=== PATIENT | female | born 1985 | race Caucasian/White ===

== ENCOUNTER 2021-12-10 15:11 | Emergency (ER) | payer MEDICAID, SELFPAY ==
--- NOTE | ~2021-12-10 | US_ITS ---
EXAMINATION: US OB <=14 wk fetus w TV DATE: 12/10/2021 17:15 INDICATION: . TECHNIQUE: Real-time transabdominal and transvaginal pelvic ultrasound was performed. COMPARISON: None. FINDINGS: TRANSABDOMINAL ULTRASOUND: The uterus measures 12.1 x 6.4 x 6.5 cm. TRANSVAGINAL ULTRASOUND: There is a fluid collection in the endometrial complex with mean diameter of 1.8 cm. There are ill-defined echoes within the fluid collection. There are nabothian cysts in the c ervix. The right ovary measures 3.1 x 2.1 x 1.9 cm. The left ovary is not visualized. There is no stella e fluid in the pelvis. IMPRESSION: 1. Fluid collection in the endometrial complex with mean diameter of 1.8 cm containing ill-defined e choes. If this finding is a gestational sac, the estimated gestational age is 6 weeks and 5 days. Spo ntaneous and ectopic are not excluded. Serial beta hCGs are recommended. Reviewed, dictated and finalized at location A. PRESSER IMPRESSION: 1. Fluid collection in the endometrial complex with mean diameter of 1.8 cm co ntaining ill-defined echoes. If this finding is a gestational sac, the estimate d gestational age is 6 weeks and 5 days. Spontaneous and ectopic pregn ruddy are not excluded. Serial beta hCGs are recommended.
[2021-12-10 15:19] VITALS: BP 143/86; PULSE 70; RESP 14; TEMP 37; O2SAT 100
[2021-12-10 15:51] LABS: Basophils Absolute Auto 0.1 K/mm3 (0.0-0.1); Basophils Percent Auto 0.8 % (0.2-1.2); Eosinophils Absolute Auto 0.1 K/mm3 (0-0.3); Eosinophils Percent Auto 1.4 % (0-4.4); Hematocrit 41.9 % (37.0-47.0); Hemoglobin 13.4 g/dL (12.0-15.0); Immature Granulocyte Absolute 0.01 K/mm3 (0.00-0.031); Immature Granulocyte Percent A 0.1 % (0-0.5); Lymphocytes Absolute Auto 2.88 K/mm3 (0.9-3.2); Lymphocytes Percent Auto 32.1 % (18.3-44.2); Mean Corpuscular Hemoglobin 28.9 pg (26-34); Mean Corpuscular Volume 90.3 fl (80-100); Mean Platelet Volume 10.2 fl (7.4-10.4); Monocytes Absolute Auto 0.6 K/mm3 (0.1-0.6); Monocytes Percent Auto 6.8 % (2.6-8.5); Neutrophils Absolute Auto 5.3 K/mm3 (1.3-6.7); Neutrophils Percent Auto 58.8 % (45.5-73.1); Platelet Count Result 344 k/mm3 (150-375); Red Blood Count 4.64 M/mm3 (4.2-5.4); Red Cell Distribution Width 12.6 % (11.5-14.5)
[2021-12-10 15:59] LABS: Add Urine Microscopic? NO; Appearance Urine Clear (Clear); Bilirubin Urine Negative (Negative); Blood Urine Negative (Negative); Color Urine Yellow (Yellow); Glucose Urine UA Negative (Negative); Ketones Urine Negative (Negative); Leukocyte Esterase Ur Negative LEU/UL (Negative); Nitrate Urine Negative (Negative); Protein Urine Negative (Negative); Urobilinogen Urine Negative mg/dL (<2.0)
[2021-12-10 16:00] LABS: Alanine Aminotransferase 15 U/L (4-35); Albumin Level 4.4 g/dL (3.5-5.1); Alkaline Phosphatase 62 U/L (38-126); Anion Gap 10 mmol/L (8-16); Aspartate Amino Transferase 23 U/L (14-36); Bilirubin,Total 0.4 mg/dL (0.2-1.3); Blood Urea Nitrogen 8 mg/dL (7-17); Calcium 9.5 mg/dL (8.4-10.2); Carbon Dioxide 27 mmol/L (22-30); Chloride 102 mmol/L (98-107); Estimated CRCL calculation 183 ml/min; Estimated Glomerular Filt Rate > 60; Glucose 79 mg/dL (65-110); Lipase 31 U/L (23-300); Potassium 3.9 mmol/L (3.4-5.0); Sodium 139 mmol/L (137-145)
--- NOTE | 2021-12-10 16:29 | ED.ABDPAIN ---
HPI - Abdominal Pain General Chief Complaint: Abdominal Pain Stated Complaint: abdominal cramps, 14 weeks Time Seen by Provider: 12/10/21 16:27 Source: patient and family Mode of arrival: ambulatory Limitations: no limitations History of Present Illness HPI narrative: Patient is 36 years old white female presents with lower abdominal cramps mainly on the right side, started 2 to 3 weeks ago. History of endometriosis. Patient is telling me that she is , and doesn't know when the last time she had a menstrual cycle. Patient is 5, para 2, 2. Patient was seen at urgent care recently, 3 weeks ago, positive ,. Patient scheduled to see an CONSULTING PROPERTY MANAGER at [facility] next week. Patient denies any fever, chills, nausea, vomiting, diarrhea, constipation or urinary symptoms. Patient denies any vaginal bleeding or discharge Related Data Home Medications Medication Instructions Recorded Confirmed No Home Medications 12/10/21 12/10/21 Allergies Allergy/AdvReac Type Severity Reaction Status Date / Time No Known Allergies Allergy Verified 12/10/21 15:31 Review of Systems Review of Systems: CONSTITUTIONAL: Denies fever, chills, or sweats. EYES: Denies visual changes, redness, or discharge. ENT: Denies rhinorrhea, congestion, sore throat, or otalgia. CARDIOVASCULAR: Denies chest pain, palpitations, or edema. RESPIRATORY: Denies cough or dyspnea. GASTROINTESTINAL: Denies abdominal pain, nausea, vomiting, or diarrhea. GENITOURINARY: Denies dysuria or hematuria. SKIN: Denies rash or itching. MUSCULOSKELETAL: Denies back pain, joint pain, or myalgia. NEUROLOGIC: Denies headache, numbness, or weakness. PSYCHIATRIC: Denies anxiety or depression. Exam Narrative: General appearance: Well-developed, well-nourished, obese Skin: Normal color Head: Normocephalic, nontraumatic Eyes: Clear conjunctiva ENT: Oropharynx normal, ears normal, nose normal Neck: Supple, nontender Chest and respiratory: Airway patent, no respiratory distress, no accessory muscle use Heart: Regular rate/rhythm Abdomen: Soft, nontender, no organomegaly, quiet bowel sounds Vascular: Normal peripheral pulses, normal capillary refill. Musculoskeletal: Normal range of motion, nontender back Neurologic: Alert and oriented ?3, STAIN REMOVER is normal as tested, no gross motor deficit Course Course Emergency Course: Stable Consultations Consultation #1: Dr. Miller. This could be a molar or worsen. Patient need to be seen within 48 hours. Beta-hCG and ultrasound result indicate no ectopic at this time Date: 12/10/21 Time: 18:21 Vital Signs Vital signs: Vital Signs Temperature 37.0 C 12/10/21 15:19 Pulse Rate 70 12/10/21 15:19 Respiratory Rate 14 12/10/21 15:19 Blood Pressure 143/86 H 12/10/21 15:19 Pulse Oximetry 100 12/10/21 15:19 Temperature 37.0 C 12/10/21 15:19 Pulse Rate 70 12/10/21 15:19 Respiratory Rate 14 12/10/21 15:19 Blood Pressure 143/86 H 12/10/21 15:19 Pulse Oximetry 100 12/10/21 15:19 MDM - Abdominal Pain MDM Narrative Medical decision making narrative: related symptoms Work-up showed nonspecific pelvic ultrasound, A copy of the ultrasound and beta-hCG was given to the patient prior to discharge Differential Diagnosis Differential diagnosis: Likely abdominal pain, acute appendicitis, calculus of kidney, constipation, endometriosis and pancreatitis Lab Data Result diagrams: 12/10/21 15:36 12/10/21 15:36 Labs: Lab Results 12/10/21 12/10/21 12/10/21 Range/Units 15:36 15:36 15:36 WBC 9.0 (4.5-10.0) K/mm3 RBC 4.64 (4.2-5.4) M/mm3 Hgb 13.4 (12.0
[2021-12-10] MEDS: SODIUM CHLORIDE 0.9% IV 1,000 ML 999 ML IV CONT (17:24)
[2021-12-10 18:42] VITALS: BP 138/75; PULSE 78; RESP 18; O2SAT 100
== END 2021-12-10 18:43 | disposition home or self-care (01) ==
PROVIDERS: Emergency Medicine; Emergency Provider Emergency Medicine; PCP Family Medicine Sports Medicine
DX: O26.891 Other specified pregnancy related conditions, first trimester (principal); R10.31 Right lower quadrant pain; Z3A.01 Less than 8 weeks gestation of pregnancy
CPT/HCPCS: 36415; 76801; 76817; 80053; 81003; 81025; 83690; 84702; 85025; 96360; 99284; J7030

== ENCOUNTER 2023-01-26 12:52 | Outpatient (CLI) | payer OTHER, SELFPAY ==
[2023-01-26 13:25] LABS: Hematocrit 41.9 % (37.0-47.0); Hemoglobin 13.2 g/dL (12.0-15.0); Mean Corpuscular HGB Conc 31.5 g/dl (32-36); Mean Corpuscular Hemoglobin 28.6 pg (26-34); Mean Corpuscular Volume 90.7 fl (80-100); Mean Platelet Volume 9.9 fl (7.4-10.4); Platelet Count Result 284 k/mm3 (150-375); Red Blood Count 4.62 M/mm3 (4.2-5.4); Red Cell Distribution Width 12.4 % (11.5-14.5); White Blood Count 6.8 K/mm3 (4.5-10.0)
== END 2023-01-26 12:53 | disposition home or self-care (01) ==
LOC: ANHSURGERY 12:59
PROVIDERS: PCP Family Medicine Sports Medicine; Visit Provider Obstetrics & Gynecology
DX: R10.2 Pelvic and perineal pain (principal); Z01.818 Encounter for other preprocedural examination
CPT/HCPCS: 36415; 85027

== ENCOUNTER 2023-01-29 00:21 | Day surgery (SDC) | payer OTHER, SELFPAY ==
[2023-01-22 15:18] VITALS: BMI 51.7
--- NOTE | 2023-01-22 15:26 | SUR.PREOP ---
Report to the Outpatient Waiting Room, entrance under the green pavilion located off [address], at time _0800 on date _01/29/23 . Planned Procedure Time: _1000 . Time changes happen often and if your time is changed the preop area will call you the afternoon before. - You and your visitor will be asked to self-screen and do not enter if you have any COVID symptoms. - Only one visitor is requested with a max of two and NO children visitors are allowed at this time. - The patient visitor may be requested to leave or wait in car when not with patient due to distancing restrictions. - A mask is optional within the hospital at this time. Patients may have clear liquids (water, carbonated beverages, clear teas, apple juice) until 3 hours prior to surgery with a maximum of 20 ounces. - No food from midnight until time of surgery - Infants may have breast milk until 4 hours before surgery, infant formula 6 hours prior to surgery. - Children will be allowed to drink immediately following surgery. If applicable, please bring a bottle or sippy cup to assist with drinking. Juice, water, soda, and popsicles are readily available. For infants on formula, please bring formula the day of surgery. Pacifiers are allowed. Take the following medications with a SIP of water the morning of surgery: _alprazolam,pain med bring albuterol inhaler with you the day of surgery DO NOT STOP ANY OF YOUR OTHER PRESCRIPTION MEDICATIONS PRIOR TO SURGERY ?EXCEPT THE FOLLOWING Medications to discontinue per physician n/a Date to take last dose___n/a Please no make-up, nail lithuanian, hairspray, perfume, deodorant, or body powder the day of surgery. No jewelry (including any body piercings) or valuables the day of surgery, leave them at home. Please take a shower or bath the night before, or the morning of, surgery with an antibacterial soap. Wear comfortable, loose fitting clothing. Children are encouraged to wear pajamas. - Jewelry must be removed prior to entering the operating room. Rings and piercings that are not removed may be cut off. - The hospital will not accept responsibility for valuables. - Please leave all valuables, including medications, at home the day of surgery. If you are going home after surgery, a licensed concrete truck driver must drive you home. - NO public transportation without another adult if you receive anesthesia. - We recommend that an adult stay with you for 24 hours following discharge. - We also recommend that you do not drive, make important decision, drink alcoholic beverages, or take any drugs that were not prescribed by your health care provider for at least 24 hours after your discharge time. For Pediatric surgeries, we recommend two adults accompany the child home. Follow any additional instructions given to you from your surgeon. If you or anyone in your household have experienced Covid symptoms in the past week, please notify your surgeon or the nurse liaison at the phone number below for possible testing. Telephone instructions given to irlanda mcclain and asked if any additional questions and then verbalized understanding. Patient advised to call surgeon office or pre surgery nurse liaison [phone] if any additional questions.
--- NOTE | 2023-01-27 18:35 | PM.IMHP ---
H&P: HPI History of Present Illness Date/Time: 01/27/23 18:35 37-year-old female 5 para 2031 presents for evaluation of irregular vaginal bleeding and pelvic pain. She has a longstanding history of the same problems has seen multiple physicians over the past year with no significant evaluation or treatment per her history. She also states she has had 2 miscarriages within the last year for which she needed suction curettage. She is interested in and therefore would like evaluation and treatment so long as it does not inhibit fertility. Records are reviewed from some other clinics that she has been 2 and of significance has had a normal ultrasound and no other significant abnormalities other than occasional vaginal discharge. Chief Complaint: Pelvic pain Review of Systems Review of Systems: All systems reviewed & are unremarkable except as noted in HPI and below PMFSH Past Medical History Medical History Anxiety Arthritis Asthma Depression Surgical History Surgical History H/O dilation and curettage x 2 History of ankle surgery Hx of cholecystectomy Family History Family History Grandparent Hypertension Malignant neoplasm of lung Depression Mother Depression Social History Social History Smoking status: Never smoker Alcohol intake: current Alcohol use details: occasional Substance use: never Living arrangements: with family Additional living arrangements comments: with two kids Occupation/Education: unemployed Gender identity (if verbalized by the patient): Female Sexual Orientation (if Verbalized by the Patient): Straight or Heterosexual Spiritual care concerns: No Meds Home Medications and Allergies Home Medications Medication Instructions Recorded Confirmed Type alprazolam 0.5 mg tablet 0.5 mg PO QHS PRN Anxiety 12/08/22 01/22/23 History hydrocodone 7.5 mg-acetaminophen 1 tablet PO BID PRN Pain 12/08/22 01/22/23 History 300 mg tablet albuterol sulfate 90 mcg/actuation 1 puff inhalation QID PRN 01/22/23 01/22/23 History aerosol inhaler Shortness Of Breath Or Wheezing Allergies Allergy/AdvReac Type Severity Reaction Status Date / Time No Known Allergies Allergy Verified 01/22/23 14:53 Exam Const: General: cooperative, healthy appearing and comfortable Resp: Effort & Inspection: normal respiratory effort Auscultation: clear to auscultation bilaterally Cardio: Rate: regular rate Rhythm: regular rhythm GI: Inspection: normal to inspection Auscultation: normal bowel sounds : External Female Exam: normal external appearance Speculum Exam - Vagina: normal appearance of the vagina Speculum Exam - Cervix: normal appearance of the cervix Bimanual exam- vagina & uterus: normal bimanual exam Bimanual Exam- Adnexa, other: normal adnexae Assessment and Plan Assessment and plan (1) Pelvic pain: Code(s): R10.2 - Pelvic and perineal pain Status: Acute Plan 1. Hysteroscopy with uterine curettings 2. Laparoscopic evaluation I have discussed with the patient and her significant other that in light of normal imaging that laparoscopic exam at times can be less than 50% on finding actual etiology for pain and discomfort. They stated good understanding and to this point since has not had this performed does desire to have this evaluation performed laparoscopically. Also hysteroscopy D&C will be performed to assess for any abnormalities intrauterine that may cause issues with and or her recent miscarriages. Questions have been answered and patient and her states good understanding of the above.
[2023-01-29] VITALS (8 sets, daily range): BP systolic 125–149; BP diastolic 69–102; PULSE 55–74; RESP 12–16; TEMP 35.9–36.5; O2SAT 94–100
--- NOTE | 2023-01-29 07:31 | WPDHPUPDATE1 ---
History and Physical Update Update Date/Time: 01/29/23 07:31 History and Physical has been reviewed, including an updated exam of the patient. There are NO changes in the patient's condition. Risks, benefits, and alternatives have been discussed and questions answered. Patient agrees to proceed with procedure.
[2023-01-29] MEDS: LACTATED RINGERS 1,000 ML 30 ML IV CONT (09:30)
[2023-01-29] MEDS: KETOROLAC 15 MG/ML VIAL (*BKC) IV PUSH (09:47)
--- NOTE | 2023-01-29 10:05 | P.PNAN_ITS ---
Anes - Initial Pre Proc Eval Procedure: Operation Date: 01/29/23 10:00 Proposed Procedures p Diagnostic Laparoscopy, Hysteroscopy, Dilatation and Curettage - Arvin Miller MD Date/Time: 01/29/23 10:05 Surgeon: Arvin Miller MD Pre Op Diagnosis: pelvic pain Patient Data Age: 37 Gender: F Height: 1.7 m Weight: 147.6 kg Last Vital Signs Temp 35.9 C L 01/29/23 08:53 Pulse 60 01/29/23 08:53 Resp 16 01/29/23 08:53 BP 135/79 01/29/23 08:53 Pulse Ox 97 01/29/23 08:53 O2 Del Method Room Air 01/29/23 08:53 Allergies Allergy/AdvReac Type Severity Reaction Status Date / Time No Known Allergies Allergy Verified 01/29/23 08:29 Home Medications Medication Instructions Recorded Confirmed Type alprazolam 0.5 mg tablet 0.5 mg PO QHS PRN Anxiety 12/08/22 01/29/23 History hydrocodone 7.5 mg-acetaminophen 1 tablet PO BID PRN Pain 12/08/22 01/29/23 History 300 mg tablet albuterol sulfate 90 mcg/actuation 1 puff inhalation QID PRN 01/22/23 01/29/23 History aerosol inhaler Shortness Of Breath Or Wheezing Patient hx anesthesia problems: post op nausea/vomiting Family hx anesthesia problems: post op nausea/vomiting Results Review: All pre-operative results and documents have been reviewed as part of the pre- operative evaluation. [facility] Past Medical History Medical History Anxiety Arthritis Asthma Depression Surgical History Surgical History H/O dilation and curettage x 2 History of ankle surgery Hx of cholecystectomy Family History Family History Grandparent Hypertension Malignant neoplasm of lung Depression Mother Depression Social History Social History Smoking status: Never smoker Alcohol intake: current Alcohol use details: occasional Substance use: never Living arrangements: with family Additional living arrangements comments: with two kids Occupation/Education: unemployed Gender identity (if verbalized by the patient): Female Sexual Orientation (if Verbalized by the Patient): Straight or Heterosexual Spiritual care concerns: No Anes - Eval Final PreProcedure Day of Procedure 01/29/23 10:05 Patient weight: super morbidly obese Heart: regular rate and rhythm Lungs: clear to auscultation Airway: Mallampati scale class II Neurological: lethargic Last oral intake: >/= 8 hours ASA classification: III Emergent: no Anesthetic plan: proceed Anesthesia type and monitoring: general ETT and standard monitoring Results Review: All pre-operative results and documents have been reviewed as part of the pre- operative evaluation. Informed Consent: The patient's anesthetic plan and its attendant risks and benefits were discussed with the patient/family/POA. Questions were solicited and answers provided to the satisfaction of the patient/family/POA.
[2023-01-29] MEDS: SCOPOLAMINE 1.5 MG PATCH TRANSDERM (10:14)
--- NOTE | 2023-01-29 11:08 | W.PM.PROC2 ---
Procedure Note - Detailed Date of Procedure 01/29/23 Pre-op Diagnosis pelvic pain Post-op Diagnosis Same Procedure Performed 1. Hysteroscopy curettings 2. diagnostic laparoscopy Surgeon Arvin Miller MD Anesthesia General Findings 1. Hysteroscopy revealed no specific abnormalities. 2. Laparoscopy no evidence of significant adhesive disease for endometriosis. Tubes ovaries themselves without abnormality as well. Description of Procedure Patient prepped usual manner for this procedure abdominal trocar sites were placed under direct visualization and patient was placed in Trendelenburg position to allow visualization of the pelvis. There were no significant abnormalities in the pelvis no other evidence of adhesions. Thorough evaluation of cul-de-sac and lateral solorzano as well as tubes and ovaries revealed no endometriosis or adhesions of significance. Gas was allowed to escape sections approximated using 4-0 Monocryl Cervix was then dilated to have the hysteroscope to place which revealed again findings which were centrally normal, curettings were obtained and the procedure at this point was considered terminated. Patient was sent to the recovery room in stable condition. Estimated Blood Loss 10 Drains No Packing No Pathology Yes Complications No immediate complications Condition Stable Disposition PACU [facility] Billing Surgery - Charge Forward: Surgery Billing
[2023-01-29] MEDS: fentaNYL CITRATE INJ (*CRX) 100 MCG/2 ML VIAL 25 MCG IV PUSH ×8 (11:25→11:56)
[2023-01-29] MEDS: oxyCODONE HCL (*CRX) 5 MG TAB IR PO (12:53)
== END 2023-01-29 13:25 | disposition home or self-care (01) ==
PROVIDERS: PCP Family Medicine Sports Medicine; Visit Provider Obstetrics & Gynecology
PROC: 0UDB8ZZ Extraction of Endometrium, Via Natural or Artificial Opening Endoscopic (ICD-10-PCS; CPT 58558; principal; 2023-01-29 10:00)
DX: R10.2 Pelvic and perineal pain (principal); J45.909 Unspecified asthma, uncomplicated; F41.9 Anxiety disorder, unspecified; F32.A Depression, unspecified; Z79.51 Long term (current) use of inhaled steroids; E66.01 Morbid (severe) obesity due to excess calories; Z68.43 Body mass index [BMI] 50.0-59.9, adult
CPT/HCPCS: 58558; 49320; 88305; A9270; J0330; J1100; J1885; J2001; J2250; J2405; J2704; J3010; J7120

== ENCOUNTER 2023-10-21 14:50 | Outpatient (CLI) | payer OTHER, SELFPAY ==
--- NOTE | ~2023-10-21 | US_ITS ---
EXAMINATION: US OB <= 14 weeks fetus DATE: 10/21/2023 15:48 INDICATION: Amenorrhea. TECHNIQUE: Real-time transabdominal and transvaginal obstetric ultrasound. FINDINGS: No prior studies for comparison. The uterus measures 11.7 x 6.4 x 8.3 cm. There is an intrauterine gestational sac, with pole id entified. The crown rump length measures 3.4 cm, which correlates with a estimated gestational age o f 10 weeks 2 days. heart tones are identified measuring 165 bpm. The ovaries are within billie l limits. Right ovary measures 1.9 x 1.3 x 1.5 cm. Left ovary measures 2.3 x 1.5 x 1.5 cm. IMPRESSION: 1. SL IUP with an EGA of 10 weeks, 2 days (EDC by current ultrasound of 05/16/2024). Reviewed, dictated and finalized at location B. UNICATION MANAGER IMPRESSION: 1. SL IUP with an EGA of 10 weeks, 2 days (EDC by current ultrasound of 024).
[2023-10-21 17:20] LABS: Basophils Absolute Auto 0.1 K/mm3 (0.0-0.1); Basophils Percent Auto 0.5 % (0.2-1.2); Eosinophils Absolute Auto 0.2 K/mm3 (0-0.3); Eosinophils Percent Auto 1.6 % (0-4.4); Hematocrit 39.8 % (37.0-47.0); Hemoglobin 12.4 g/dL (12.0-15.0); Immature Granulocyte Absolute 0.03 K/mm3 (0.00-0.031); Immature Granulocyte Percent A 0.3 % (0-0.5); Lymphocytes Absolute Auto 2.93 K/mm3 (0.9-3.2); Lymphocytes Percent Auto 28.7 % (18.3-44.2); Mean Corpuscular HGB Conc 31.2 g/dl (32-36); Mean Corpuscular Hemoglobin 28.2 pg (26-34); Mean Corpuscular Volume 90.5 fl (80-100); Mean Platelet Volume 10.3 fl (7.4-10.4); Monocytes Absolute Auto 0.5 K/mm3 (0.1-0.6); Monocytes Percent Auto 5.1 % (2.6-8.5); Neutrophils Absolute Auto 6.5 K/mm3 (1.3-6.7); Neutrophils Percent Auto 63.8 % (45.5-73.1); Platelet Count Result 325 k/mm3 (150-375); Red Cell Distribution Width 12.7 % (11.5-14.5); White Blood Count 10.2 K/mm3 (4.5-10.0)
[2023-10-21 17:29] LABS: Glucose 1 Hour PP 50gm Dose 125 mg/dL
[2023-10-21 18:51] LABS: Hepatitis B Surface Antigen Negative (Negative); Rubella IgG Antibody 3.5 IU/ML
[2023-10-21 19:58] LABS: HIV 1/2 Ab P24 Ag Result Negative (Negative)
[2023-10-22 14:09] LABS: Rapid Plasma Reagin Non-Reactive (NonReactive)
[2023-10-24 13:07] LABS: CMV IgG Antibody >10.00 U/mL (<0.60)
[2023-11-03 07:38] LABS: CF Result NEGATIVE (NEGATIVE); Ethnicity NG
== END 2023-10-21 14:51 | disposition home or self-care (01) ==
PROVIDERS: PCP Family Medicine Sports Medicine; Visit Provider Obstetrics & Gynecology
DX: Z34.91 Encounter for supervision of normal pregnancy, unspecified, first trimester (principal); N91.2 Amenorrhea, unspecified
CPT/HCPCS: 36415; 76801; 81220; 82947; 84702; 85025; 86592; 86644; 86703; 86747; 86762; 86787; 86850; 86900; 86901; 87086; 87340; G0432

== ENCOUNTER 2024-02-01 12:12 | Outpatient (CLI) | payer OTHER, SELFPAY ==
[2024-02-01 13:05] VITALS: BP 134/81; PULSE 94
[2024-02-01 13:05] LABS: Appearance Urine Turbid (Clear); Bacteria Urine Rare /hpf; Bilirubin Urine Negative (Negative); Blood Urine Non-Hemolyzed Trace (Negative); Color Urine Yellow (Yellow); Glucose Urine UA Negative (Negative); Ketones Urine Negative (Negative); Leukocyte Esterase Ur 1+ LEU/UL (Negative); Nitrate Urine Negative (Negative); Protein Urine Trace mg/dL (Negative); Specific Grav Ur 1.018 (1.001-1.035); Squamous Epithelial Cell Urine Few /hpf (Few); WBC Urine 21-50 /hpf (0-3); pH Urine 8.5 (5.0-9.0)
[2024-02-01 13:11] LABS: Add Urine Microscopic? YES
--- NOTE | 2024-02-01 13:15 | P.PNOB_ITS ---
OB - Triage/Final Diagnosis Visit Information Reason for evaluation: other (gush of fluid) Comments/Additional reasons for admission: I have assessed the risk for this patient, Dionne Park, and determined that she would benefit from observation care. Evaluation Laboratory results: Laboratory Tests 02/01/24 12:51 Urine Color Yellow Urine Appearance Turbid H Urine pH 8.5 Ur Specific [place] 1.018 Urine Protein Trace Urine Glucose (UA) Negative Urine Ketones Negative Ur Blood (Man) Non-hemolyzed trace H Urine Nitrate Negative Urine Bilirubin Negative Urine Urobilinogen 1.0 Leukocyte Esterase Rfl 1+ H Urine RBC 6-10 H Urine WBC 21-50 H Ur Squamous Epith Cells Few Urine Bacteria Rare Urine Casts 3-5 Vital signs: Vital Signs - 24 hr 02/01/24 13:05 Pulse Rate 94 Blood Pressure 134/81 Final Diagnosis (1) UTI (urinary tract infection): Code(s): N39.0 - Urinary tract infection, site not specified Status: Acute Plan: ROM + negative Amox 500mg TID x 7 days rx'ed to pharmacy
== END 2024-02-01 13:30 ==
LOC: ANHOBOP 02-02 10:39 → ANHOBPP 02-02 10:39
PROVIDERS: PCP Family Medicine Sports Medicine; Visit Provider Obstetrics & Gynecology
DX: O42.90 Premature rupture of membranes, unspecified as to length of time between rupture and onset of labor, unspecified weeks of gestation (principal); Z3A.00 Weeks of gestation of pregnancy not specified
CPT/HCPCS: 84112; 87077; 87086; 87088; 99199

== ENCOUNTER 2024-02-26 11:15 | Outpatient (CLI) | payer OTHER, SELFPAY ==
[2024-02-26 12:35] LABS: Basophils Percent Auto 0.4 % (0.2-1.2); Eosinophils Absolute Auto 0.1 K/mm3 (0-0.3); Eosinophils Percent Auto 1.2 % (0-4.4); Hematocrit 34.4 % (37.0-47.0); Hemoglobin 11.1 g/dL (12.0-15.0); Immature Granulocyte Absolute 0.06 K/mm3 (0.00-0.031); Immature Granulocyte Percent A 0.6 % (0-0.5); Lymphocytes Absolute Auto 2.06 K/mm3 (0.9-3.2); Lymphocytes Percent Auto 19.1 % (18.3-44.2); Mean Corpuscular HGB Conc 32.3 g/dl (32-36); Mean Corpuscular Hemoglobin 29.3 pg (26-34); Mean Corpuscular Volume 90.8 fl (80-100); Mean Platelet Volume 10.3 fl (7.4-10.4); Monocytes Absolute Auto 0.4 K/mm3 (0.1-0.6); Monocytes Percent Auto 3.5 % (2.6-8.5); Neutrophils Absolute Auto 8.1 K/mm3 (1.3-6.7); Neutrophils Percent Auto 75.2 % (45.5-73.1); Platelet Count Result 310 k/mm3 (150-375); Red Blood Count 3.79 M/mm3 (4.2-5.4); Red Cell Distribution Width 14.8 % (11.5-14.5); White Blood Count 10.8 K/mm3 (4.5-10.0)
[2024-02-26 13:00] LABS: Glucose 1 Hour PP 50gm Dose 165 mg/dL
[2024-02-26 13:31] LABS: HIV 1/2 Ab P24 Ag Result Negative (Negative)
== END 2024-02-26 11:16 | disposition home or self-care (01) ==
LOC: ANHLAB 11:16
PROVIDERS: PCP Family Medicine Sports Medicine; Visit Provider Obstetrics & Gynecology
DX: Z34.90 Encounter for supervision of normal pregnancy, unspecified, unspecified trimester (principal); Z3A.00 Weeks of gestation of pregnancy not specified
CPT/HCPCS: 36415; 82947; 85025; 86703; G0432

== ENCOUNTER 2024-03-04 07:17 | Outpatient (CLI) | payer OTHER, SELFPAY ==
[2024-03-04 07:50] LABS: Glucose Fasting Gestational 104 mg/dL (>/=95)
[2024-03-04 09:18] LABS: Glucose 1 Hour Gest 177 mg/dL (>/=180)
[2024-03-04 11:19] LABS: Glucose 2 Hour Gest 187 mg/dL (>/= 155)
[2024-03-04 11:19] LABS: Glucose 3 Hour Gest 107 mg/dL (>/=140)
== END 2024-03-04 07:18 | disposition home or self-care (01) ==
LOC: ANHLAB 07:18
PROVIDERS: PCP Family Medicine Sports Medicine; Visit Provider Obstetrics & Gynecology
DX: R73.09 Other abnormal glucose (principal)
CPT/HCPCS: 36415; 82951; 82952

== ENCOUNTER 2024-03-29 15:13 | Outpatient (CLI) | payer OTHER, SELFPAY ==
[2024-03-29 15:32] VITALS: BMI 54.8
[2024-03-29 15:45] LABS: Basophils Absolute Auto 0.1 K/mm3 (0.0-0.1); Basophils Percent Auto 0.5 % (0.2-1.2); Eosinophils Absolute Auto 0.1 K/mm3 (0-0.3); Eosinophils Percent Auto 0.9 % (0-4.4); Hematocrit 37.9 % (37.0-47.0); Hemoglobin 11.9 g/dL (12.0-15.0); Immature Granulocyte Absolute 0.05 K/mm3 (0.00-0.031); Immature Granulocyte Percent A 0.4 % (0-0.5); Lymphocytes Absolute Auto 2.26 K/mm3 (0.9-3.2); Lymphocytes Percent Auto 19.5 % (18.3-44.2); Mean Corpuscular HGB Conc 31.4 g/dl (32-36); Mean Corpuscular Hemoglobin 28.6 pg (26-34); Mean Corpuscular Volume 91.1 fl (80-100); Mean Platelet Volume 11.3 fl (7.4-10.4); Monocytes Percent Auto 8.4 % (2.6-8.5); Neutrophils Absolute Auto 8.1 K/mm3 (1.3-6.7); Neutrophils Percent Auto 70.3 % (45.5-73.1); Platelet Count Result 306 k/mm3 (150-375); Red Blood Count 4.16 M/mm3 (4.2-5.4); Red Cell Distribution Width 14.7 % (11.5-14.5); White Blood Count 11.6 K/mm3 (4.5-10.0)
[2024-03-29 15:46] VITALS: BP 127/74; PULSE 96
[2024-03-29 15:52] LABS: Alanine Aminotransferase 10 U/L (6-35); Albumin Level 3.7 g/dL (3.5-5.1); Alkaline Phosphatase 357 U/L (38-126); Anion Gap 7 mmol/L (4-12); Appearance Urine Cloudy (Clear); Aspartate Amino Transferase 16 U/L (14-36); Bacteria Urine 1+ /hpf; Bilirubin Urine Negative (Negative); Bilirubin,Total 0.4 mg/dL (0.2-1.3); Blood Urea Nitrogen 6 mg/dL (7-17); Blood Urine 1+ (Negative); Calcium 9.7 mg/dL (8.4-10.2); Carbon Dioxide 24 mmol/L (22-30); Chloride 105 mmol/L (98-107); Color Urine Yellow (Yellow); Estimated CRCL calculation 248 ml/min; Estimated Glomerular Filt Rate > 60; Glucose 92 mg/dL (65-110); Glucose Urine UA Negative (Negative); Ketones Urine Negative (Negative); Leukocyte Esterase Ur Trace LEU/UL (Negative); Nitrate Urine Negative (Negative); Non Pathogenic Casts 0-2; Protein Urine 1+ mg/dL (Negative); Sodium 136 mmol/L (137-145); Specific Grav Ur 1.018 (1.001-1.035); Squamous Epithelial Cell Urine Many /hpf (Few); Uric Acid 2.7 mg/dL (2.5-7.5); WBC Urine 0-5 /hpf (0-3)
[2024-03-29 15:56] LABS: Add Urine Microscopic? YES
[2024-03-29 16:01] VITALS: BP 123/83; PULSE 98
[2024-03-29 16:16] VITALS: BP 138/83; PULSE 101
[2024-03-29 16:25] VITALS: BP 138/83; PULSE 95
[2024-03-29 16:28] LABS: Creatinine Urine 93.6 mg/dL; Total Protein Urine Random 24 mg/dL; Ur Ttl Prot Creatinine Ratio 0.26 mg/mg (0-0.20)
== END 2024-03-29 16:40 | disposition home or self-care (01) ==
LOC: ANHOBOP 15:17 → ANHOBPP 15:18
PROVIDERS: PCP Family Medicine Sports Medicine; Visit Provider Obstetrics & Gynecology
DX: O13.9 Gestational [pregnancy-induced] hypertension without significant proteinuria, unspecified trimester (principal); Z3A.00 Weeks of gestation of pregnancy not specified
CPT/HCPCS: 36415; 59025; 80053; 81001; 82570; 84156; 84550; 85025; 99199

== ENCOUNTER 2024-04-01 11:37 | Observation (INO) | payer OTHER, SELFPAY ==
--- NOTE | 2024-04-01 11:50 | OBADM ---
This patient, Dionne Park, admitted to the OB room OB Post 115 for observation. Patient/family oriented to hospital policies and general routines including ID bracelet, bed and alarms, visiting hours, pain management, procedures, bathroom and other care routines, personal items, smoking policy, room service/diet, and visiting hours. Patient/Family are encouraged to report perceived risks to care and to ask questions if they do not understand what they are told or what they should do.
[2024-04-01 12:00] VITALS: BP 143/71; PULSE 98
[2024-04-01 12:03] LABS: Glucose Point of Care 95 mg/dl (65-105)
[2024-04-01 12:16] VITALS: BP 123/80; PULSE 97
[2024-04-01 12:30] VITALS: BP 128/64; PULSE 94
[2024-04-01 12:46] VITALS: BP 131/69; PULSE 93
[2024-04-01 13:00] VITALS: BP 136/83; PULSE 94
[2024-04-01 13:15] VITALS: BP 142/76; PULSE 96
--- NOTE | 2024-04-01 13:46 | PC.NURSE ---
Patient spoke with MFM and they have patient an order to decrease Lantus to 8 units in the morning and 8 units at night per the nurse practitioner Philip Velez. Discussed balancing carbs and protein.
--- NOTE | 2024-04-01 13:55 | PC.NURSE ---
Patient has lots of questions regarding anesthesia and her c/s, B Pollo COSMET[employer] AND TOILETR[employer] SALESPERSON at bedside to talk to patient regarding her options.
--- NOTE | 2024-04-04 08:53 | PM.OBTRLD ---
OB - Triage/Final Diagnosis Visit Information Comments/Additional reasons for admission: I have assessed the risk for this patient, Dionne Park, and determined that she would benefit from observation care. Evaluation Laboratory results: Laboratory Tests 04/01/24 11:56 POC Capillary Glucose 95 Final Diagnosis (1) Lightheadedness: Code(s): R42 - Dizziness and giddiness Status: Acute
== END 2024-04-01 14:05 | disposition home or self-care (01) ==
PROVIDERS: Obstetrics & Gynecology; Admitting Provider Obstetrics & Gynecology; PCP Family Medicine Sports Medicine; Visit Provider Obstetrics & Gynecology
DX: O26.893 Other specified pregnancy related conditions, third trimester (principal); R42 Dizziness and giddiness; Z3A.33 33 weeks gestation of pregnancy
CPT/HCPCS: 82948; G0378; G0379

== ENCOUNTER 2024-04-08 12:06 | Outpatient (CLI) | payer OTHER, SELFPAY ==
[2024-04-08 12:27] LABS: Basophils Absolute Auto 0.1 K/mm3 (0.0-0.1); Basophils Percent Auto 0.5 % (0.2-1.2); Eosinophils Absolute Auto 0.2 K/mm3 (0-0.3); Eosinophils Percent Auto 1.4 % (0-4.4); Hematocrit 37.2 % (37.0-47.0); Immature Granulocyte Absolute 0.05 K/mm3 (0.00-0.031); Immature Granulocyte Percent A 0.5 % (0-0.5); Lymphocytes Absolute Auto 2.19 K/mm3 (0.9-3.2); Mean Corpuscular HGB Conc 32.3 g/dl (32-36); Mean Corpuscular Hemoglobin 28.8 pg (26-34); Mean Corpuscular Volume 89.2 fl (80-100); Mean Platelet Volume 11.2 fl (7.4-10.4); Monocytes Absolute Auto 0.9 K/mm3 (0.1-0.6); Monocytes Percent Auto 8.3 % (2.6-8.5); Neutrophils Absolute Auto 7.6 K/mm3 (1.3-6.7); Neutrophils Percent Auto 69.3 % (45.5-73.1); Platelet Count Result 277 k/mm3 (150-375); Red Blood Count 4.17 M/mm3 (4.2-5.4); Red Cell Distribution Width 14.7 % (11.5-14.5); White Blood Count 10.9 K/mm3 (4.5-10.0)
[2024-04-08 13:42] LABS: Alanine Aminotransferase 10 U/L (6-35); Albumin Level 3.5 g/dL (3.5-5.1); Alkaline Phosphatase 464 U/L (38-126); Anion Gap 5 mmol/L (4-12); Aspartate Amino Transferase 16 U/L (14-36); Bilirubin,Total 0.4 mg/dL (0.2-1.3); Carbon Dioxide 22 mmol/L (22-30); Chloride 107 mmol/L (98-107); Estimated Glomerular Filt Rate > 60; Glucose 98 mg/dL (65-110); Potassium 4.1 mmol/L (3.4-5.0); Sodium 134 mmol/L (137-145)
[2024-04-08 13:52] LABS: Blood Urea Nitrogen 4 mg/dL (7-17)
[2024-04-15 14:43] LABS: Chenodeoxycholic Acid 0.6 umol/L (< OR = 3.9); Cholic Acid <0.5 umol/L (< OR = 2.8); Deoxycholic Acid 1.4 umol/L (< OR = 2.3)
== END 2024-04-08 12:07 | disposition home or self-care (01) ==
PROVIDERS: PCP Family Medicine Sports Medicine; Referring Provider Student in an Organized Health Care Education/Training Program
DX: L29.9 Pruritus, unspecified (principal); O13.3 Gestational [pregnancy-induced] hypertension without significant proteinuria, third trimester; Z3A.00 Weeks of gestation of pregnancy not specified
CPT/HCPCS: 36415; 80053; 82542; 85025

== ENCOUNTER 2024-04-13 16:09 | Outpatient (CLI) | payer OTHER, SELFPAY ==
[2024-04-13 16:41] LABS: Hematocrit 37.1 % (37.0-47.0); Mean Corpuscular HGB Conc 32.3 g/dl (32-36); Mean Corpuscular Hemoglobin 28.6 pg (26-34); Mean Corpuscular Volume 88.3 fl (80-100); Mean Platelet Volume 11.5 fl (7.4-10.4); Platelet Count Result 296 k/mm3 (150-375); Red Cell Distribution Width 14.5 % (11.5-14.5); White Blood Count 11.8 K/mm3 (4.5-10.0)
[2024-04-13 16:53] LABS: Alanine Aminotransferase 8 U/L (6-35); Albumin Level 3.5 g/dL (3.5-5.1); Alkaline Phosphatase 494 U/L (38-126); Anion Gap 4 mmol/L (4-12); Aspartate Amino Transferase 14 U/L (14-36); Bilirubin,Total 0.3 mg/dL (0.2-1.3); Blood Urea Nitrogen 4 mg/dL (7-17); Calcium 8.9 mg/dL (8.4-10.2); Carbon Dioxide 23 mmol/L (22-30); Chloride 107 mmol/L (98-107); Estimated Glomerular Filt Rate > 60; Glucose 108 mg/dL (65-110); Potassium 3.9 mmol/L (3.4-5.0); Sodium 134 mmol/L (137-145)
[2024-04-13 17:02] LABS: Creatinine Urine 238.1 mg/dL; Total Protein Urine Random 110 mg/dL; Ur Ttl Prot Creatinine Ratio 0.46 mg/mg (0-0.20)
--- NOTE | 2024-04-13 17:43 | PC.NURSE ---
Dr. Miller was notified of pt upon arrival. Pt had been sent by [facility], had an NST and BPP. Orders received to obtain labs. Dr. Khan notified of lab results. Pt may be discharged home and follow up with Dr. Miller at [facility] on Thursday.
== END 2024-04-13 16:10 | disposition home or self-care (01) ==
LOC: ANHOBOP 16:14
PROVIDERS: PCP Family Medicine Sports Medicine; Visit Provider Obstetrics & Gynecology
DX: Z36.9 Encounter for antenatal screening, unspecified (principal); R51.9 Headache, unspecified
CPT/HCPCS: 36415; 80053; 82570; 84156; 85027

== ENCOUNTER 2024-04-16 10:45 | Outpatient (RCR) | payer OTHER, SELFPAY ==
[2024-04-16 11:28] LABS: Basophils Percent Auto 0.4 % (0.2-1.2); Eosinophils Absolute Auto 0.2 K/mm3 (0-0.3); Eosinophils Percent Auto 1.5 % (0-4.4); Hematocrit 36.7 % (37.0-47.0); Hemoglobin 11.8 g/dL (12.0-15.0); Immature Granulocyte Absolute 0.04 K/mm3 (0.00-0.031); Immature Granulocyte Percent A 0.4 % (0-0.5); Lymphocytes Absolute Auto 1.92 K/mm3 (0.9-3.2); Lymphocytes Percent Auto 19.5 % (18.3-44.2); Mean Corpuscular HGB Conc 32.2 g/dl (32-36); Mean Corpuscular Hemoglobin 28.4 pg (26-34); Mean Corpuscular Volume 88.2 fl (80-100); Mean Platelet Volume 11.5 fl (7.4-10.4); Monocytes Absolute Auto 0.7 K/mm3 (0.1-0.6); Monocytes Percent Auto 7.3 % (2.6-8.5); Neutrophils Percent Auto 70.9 % (45.5-73.1); Platelet Count Result 260 k/mm3 (150-375); Red Blood Count 4.16 M/mm3 (4.2-5.4); Red Cell Distribution Width 14.5 % (11.5-14.5); White Blood Count 9.9 K/mm3 (4.5-10.0)
[2024-04-16 11:40] LABS: Alanine Aminotransferase 8 U/L (6-35); Albumin Level 3.3 g/dL (3.5-5.1); Alkaline Phosphatase 479 U/L (38-126); Anion Gap 4 mmol/L (4-12); Aspartate Amino Transferase 15 U/L (14-36); Bilirubin,Total 0.4 mg/dL (0.2-1.3); Blood Urea Nitrogen 4 mg/dL (7-17); Calcium 9.2 mg/dL (8.4-10.2); Carbon Dioxide 27 mmol/L (22-30); Chloride 105 mmol/L (98-107); Estimated Glomerular Filt Rate > 60; Glucose 117 mg/dL (65-110); Potassium 4.3 mmol/L (3.4-5.0); Sodium 136 mmol/L (137-145)
[2024-04-16 11:56] VITALS: BP 137/78; PULSE 92
--- NOTE | 2024-04-16 11:56 | PC.NURSE ---
Pt has NST scheduled with [facility] Thursday and Thursday this week.
== END 2024-05-02 08:14 | disposition home or self-care (01) ==
LOC: ANHOBOP 10:45
PROVIDERS: PCP Family Medicine Sports Medicine; Visit Provider Obstetrics & Gynecology
DX: O14.90 Unspecified pre-eclampsia, unspecified trimester (principal); O24.419 Gestational diabetes mellitus in pregnancy, unspecified control; Z3A.35 35 weeks gestation of pregnancy
CPT/HCPCS: 36415; 59025; 80053; 85025

== ENCOUNTER 2024-04-25 01:21 | Outpatient (CLI) | payer OTHER, SELFPAY ==
--- NOTE | 2024-04-25 02:07 | PC.NURSE ---
Called Dr. Beckwith, update on pt, negative ROM plus, scheduled repeat section at 0730, tracing, blood pressure, and pt request to go home and return at scheduled time. Orders received to discharge pt to return at 0530.
[2024-04-25 02:08] VITALS: BP 110/71; PULSE 103
== END 2024-04-25 01:22 | disposition home or self-care (01) ==
LOC: ANHOBOP 02:15
PROVIDERS: PCP Family Medicine Sports Medicine; Visit Provider Obstetrics & Gynecology
DX: O42.90 Premature rupture of membranes, unspecified as to length of time between rupture and onset of labor, unspecified weeks of gestation (principal); Z3A.00 Weeks of gestation of pregnancy not specified
CPT/HCPCS: 59025; 84112

== ENCOUNTER 2024-04-25 05:32 | Inpatient (IN) | payer OTHER, SELFPAY ==
[2024-04-25] VITALS (63 sets, daily range): BP systolic 118–145; BP diastolic 45–89; PULSE 72–138; RESP 15–19; TEMP 35.9–37.2; O2SAT 91–99; BMI 55.2
[2024-04-25 06:28] LABS: Basophils Absolute Auto 0.1 K/mm3 (0.0-0.1); Basophils Percent Auto 0.6 % (0.2-1.2); Eosinophils Absolute Auto 0.2 K/mm3 (0-0.3); Eosinophils Percent Auto 1.3 % (0-4.4); Hemoglobin 12.3 g/dL (12.0-15.0); Immature Granulocyte Absolute 0.06 K/mm3 (0.00-0.031); Immature Granulocyte Percent A 0.5 % (0-0.5); Lymphocytes Absolute Auto 2.66 K/mm3 (0.9-3.2); Lymphocytes Percent Auto 21.2 % (18.3-44.2); Mean Corpuscular HGB Conc 32.4 g/dl (32-36); Mean Corpuscular Hemoglobin 29.1 pg (26-34); Mean Corpuscular Volume 89.8 fl (80-100); Mean Platelet Volume 12.2 fl (7.4-10.4); Monocytes Absolute Auto 0.8 K/mm3 (0.1-0.6); Monocytes Percent Auto 6.1 % (2.6-8.5); Neutrophils Absolute Auto 8.9 K/mm3 (1.3-6.7); Neutrophils Percent Auto 70.3 % (45.5-73.1); Platelet Count Result 291 k/mm3 (150-375); Red Blood Count 4.23 M/mm3 (4.2-5.4); Red Cell Distribution Width 14.8 % (11.5-14.5); White Blood Count 12.6 K/mm3 (4.5-10.0)
[2024-04-25] MEDS: ACETAMINOPHEN 500 MG TABLET 1000 MG PO (06:30)
[2024-04-25] MEDS: LACTATED RINGERS 1,000 ML 125 ML IV CONT ×2 (06:30→07:24)
--- NOTE | 2024-04-25 06:36 | LDADM ---
This patient, Dionne Park, was admitted to Labor/Delivery/Recovery 120 on 04/25/24 at 05:32. Plans for labor, pain management and were discussed with patient. Patient/family oriented to hospital policies and general routines including ID bracelet, bed and alarms, visiting hours, pain management, procedures, bathroom and other care routines, personal items, smoking policy, room service/diet and guest tray routines, infant security routines, and visiting hours. Patient/Family are encouraged to report perceived risks to care and to ask questions if they do not understand what they are told or what they should do. See OBI[facility] for further documentation.
[2024-04-25 06:39] LABS: Alanine Aminotransferase 11 U/L (6-35); Albumin Level 3.1 g/dL (3.5-5.1); Alkaline Phosphatase 575 U/L (38-126); Anion Gap 6 mmol/L (4-12); Aspartate Amino Transferase 21 U/L (14-36); Bilirubin,Total 0.4 mg/dL (0.2-1.3); Blood Urea Nitrogen 7 mg/dL (7-17); Calcium 9.5 mg/dL (8.4-10.2); Carbon Dioxide 24 mmol/L (22-30); Chloride 105 mmol/L (98-107); Estimated Glomerular Filt Rate > 60; Glucose 90 mg/dL (65-110); Potassium 4.4 mmol/L (3.4-5.0); Sodium 135 mmol/L (137-145)
[2024-04-25] MEDS: FAMOTIDINE 20 MG/2 ML VIAL IV PUSH (06:51)
[2024-04-25] MEDS: ONDANSETRON INJ 4 MG/2 ML VIAL IV PUSH (06:51)
--- NOTE | 2024-04-25 07:19 | PM.IMHP ---
H&P: HPI History of Present Illness Date/Time: 04/25/24 07:19 30 38-year-old female 3 para 2001 at 37 weeks presents for repeat delivery. complicated by advanced maternal age, as well as gestational diabetes and currently on insulin. Has had average control and therefore presents for delivery. Chief Complaint: Review of Systems Review of Systems: All systems reviewed & are unremarkable except as noted in HPI and below PMFSH Past Medical History Medical History (Updated 04/25/24 @ 07:30 by Arvin Miller MD) Anxiety Arthritis Asthma Depression Gestational diabetes (03/15/24) Surgical History Surgical History H/O dilation and curettage x 2 History of ankle surgery History of hysteroscopy (01/29/23) Hysteroscopy curettings diagnostic laparoscopy Hx of cholecystectomy Family History Family History Grandparent Hypertension Malignant neoplasm of lung Depression Mother Depression Social History Social History Smoking status: Never smoker Alcohol intake: current Alcohol use details: occasional Substance use: former Other substance usage details: Smoke marijuana in the past Do You Feel Safe in your Home?: Yes Lack of Transportation: No Lack of Food: Never True Current Housing: I Have Housing Concerned About Future Housing: No Difficulty Paying Gas/Electric Bills: No Difficulty Paying for Meds: No Currently Unemployed: YES Education: Associate Degree Difficulty w/ Childcare or Family Care: No Living arrangements: with family Additional living arrangements comments: with two kids Occupation/Education: unemployed Gender identity (if verbalized by the patient): Female Sexual Orientation (if Verbalized by the Patient): Straight or Heterosexual Spiritual care concerns: No Meds Home Medications and Allergies Home Medications Medication Instructions Recorded Confirmed Type albuterol sulfate 90 mcg/actuation 1 puff inhalation QID PRN 01/22/23 04/20/24 History aerosol inhaler Shortness Of Breath Or Wheezing ondansetron HCl 4 mg tablet 4 mg PO Q6H PRN nausea and 10/06/23 04/20/24 Rx vomiting #30 tabs aspirin 81 mg tablet,delayed 162 mg PO DAILY 11/30/23 04/20/24 History release (Adult Low Dose Aspirin) insulin glargine 100 unit/mL (3 8 unit subcut Q12H 04/06/24 04/20/24 History mL) subcutaneous pen (Lantus Solostar U-100 Insulin) hydroxyzine HCl 25 mg tablet 50 mg PO QID PRN Itching 04/16/24 04/20/24 History vit no.95-ferrous 1 tablet PO DAILY 04/16/24 04/20/24 History fumarate 28 mg-folic acid 800 mcg tablet () Allergies Allergy/AdvReac Type Severity Reaction Status Date / Time propofol AdvReac Severe Vomiting Verified 04/25/24 03:36 Vital Signs Vital Signs - 24 hr 04/25/24 06:08 04/25/24 06:11 04/25/24 06:13 Temperature Pulse Rate 116 H Blood Pressure 145/89 H Pulse Oximetry 98 99 Oxygen Delivery 04/25/24 06:16 04/25/24 06:18 04/25/24 06:23 Temperature Pulse Rate 100 Blood Pressure 127/61 Pulse Oximetry 98 98 Oxygen Delivery 04/25/24 06:28 04/25/24 06:33 04/25/24 06:38 Temperature Pulse Rate Blood Pressure Pulse Oximetry 98 98 98 Oxygen Delivery 04/25/24 06:43 04/25/24 06:48 04/25/24 07:00 Temperature Pulse Rate 100 Blood Pressure 121/82 Pulse Oximetry 98 97 Oxygen Delivery 04/25/24 06:31 04/25/24 06:30 Temperature 98.2 F Pulse Rate Blood Pressure Pulse Oximetry Oxygen Delivery Room Air Exam Const: General: cooperative and healthy appearing Resp: Effort & Inspection: normal respiratory effort Auscultation: clear to auscultation bilaterally Cardio: Rate: regular rate Rhythm: re
[2024-04-25 07:20] LABS: HIV 1/2 Ab P24 Ag Result Negative (Negative)
[2024-04-25] MEDS: ceFAZolin 3 GM/D5W 100 ML 100 ML IVPB (07:30)
--- NOTE | 2024-04-25 07:31 | WPDHPUPDATE1 ---
History and Physical Update Update Date/Time: 04/25/24 07:31 History and Physical has been reviewed, including an updated exam of the patient. There are NO changes in the patient's condition. Risks, benefits, and alternatives have been discussed and questions answered. Patient agrees to proceed with procedure.
--- NOTE | 2024-04-25 07:42 | WPDANESEPPF ---
Anes - Initial Pre Proc Eval Procedure: Operation Date: 04/25/24 07:30 Proposed Procedures p Repeat Section with Tubal Ligation - Arvin Miller MD Date/Time: 04/25/24 07:42 Surgeon: Arvin Miller MD Pre Op Diagnosis: C/section Patient Data Age: 38 Gender: F Height: 1.7 m Weight: 160 kg Last Vital Signs Temp 98.2 F 04/25/24 06:30 Pulse 100 04/25/24 07:00 BP 121/82 04/25/24 07:00 Pulse Ox 97 04/25/24 06:48 O2 Del Method Room Air 04/25/24 06:31 Allergies Allergy/AdvReac Type Severity Reaction Status Date / Time propofol AdvReac Severe Vomiting Verified 04/25/24 03:36 Home Medications Medication Instructions Recorded Confirmed Type albuterol sulfate 90 mcg/actuation 1 puff inhalation QID PRN 01/22/23 04/20/24 History aerosol inhaler Shortness Of Breath Or Wheezing ondansetron HCl 4 mg tablet 4 mg PO Q6H PRN nausea and 10/06/23 04/20/24 Rx vomiting #30 tabs aspirin 81 mg tablet,delayed 162 mg PO DAILY 11/30/23 04/20/24 History release (Adult Low Dose Aspirin) insulin glargine 100 unit/mL (3 8 unit subcut Q12H 04/06/24 04/20/24 History mL) subcutaneous pen (Lantus Solostar U-100 Insulin) hydroxyzine HCl 25 mg tablet 50 mg PO QID PRN Itching 04/16/24 04/20/24 History vit no.95-ferrous 1 tablet PO DAILY 04/16/24 04/20/24 History fumarate 28 mg-folic acid 800 mcg tablet () Laboratory Tests 04/25/24 06:18 WBC 12.6 H K/mm3 (4.5-10.0) RBC 4.23 M/mm3 (4.2-5.4) Hgb 12.3 g/dL (12.0-15.0) Hct 38.0 % (37.0-47.0) MCV 89.8 fl (80-100) MCH 29.1 pg (26-34) MCHC 32.4 g/dl (32-36) RDW 14.8 H % (11.5-14.5) Plt Count 291 k/mm3 (150-375) MPV 12.2 H fl (7.4-10.4) Immature Gran % (Auto) 0.5 % (0-0.5) Neut % (Auto) 70.3 % (45.5-73.1) Lymph % (Auto) 21.2 % (18.3-44.2) [place] % (Auto) 6.1 % (2.6-8.5) Eos % (Auto) 1.3 % (0-4.4) Baso % (Auto) 0.6 % (0.2-1.2) Lymph # (Auto) 2.66 K/mm3 (0.9-3.2) [place] # (Auto) 0.8 H K/mm3 (0.1-0.6) Eos # (Auto) 0.2 K/mm3 (0-0.3) Baso # (Auto) 0.1 K/mm3 (0.0-0.1) Abs Immat Gran (auto) 0.06 H K/mm3 (0.00-0.031) Absolute Neuts (auto) 8.9 H K/mm3 (1.3-6.7) Absolute Nucleated RBC 0.000 K/mm3 (0.0-0.012) Nucleated RBC % 0.0 % (0.0-0.2) Sodium 135 L mmol/L (137-145) Potassium 4.4 mmol/L (3.4-5.0) Chloride 105 mmol/L (98-107) Carbon Dioxide 24 mmol/L (22-30) Anion Gap 6 mmol/L (4-12) BUN 7 mg/dL (7-17) Creatinine 0.40 L mg/dL (0.7-1.0) Estim Creat Clear Calc Not Reportable Estimated GFR > 60 (59 - ) Glucose 90 mg/dL (65-110) Calcium 9.5 mg/dL (8.4-10.2) Total Bilirubin 0.4 mg/dL (0.2-1.3) AST 21 U/L (14-36) ALT 11 U/L (6-35) Alkaline Phosphatase 575 H U/L (38-126) Total Protein 6.0 L g/dL (6.3-8.2) Albumin 3.1 L g/dL (3.5-5.1) RPR Pending HIV 1&2 Ab/P24 Ag 4thGn Negative (Negative) Blood Type A Positive Antibody Screen Negative Patient hx anesthesia problems: other (Prev difficulty w epidural for labor as noted. ) Family hx anesthesia problems: none Results Review: All pre-operative results and documents have been reviewed as part of the pre-operative evaluation. [facility] Past Medical History Medical History Anxiety Arthritis Asthma Depression Gestational diabetes (03/15/24) Surgical History Surgical History H/O dilation and curettage x 2 History of ankle surgery History of hysteroscopy (01/29/23) Hysteroscopy curettings diagnostic laparoscopy Hx of cholecystectomy Family History Family History Grandparent Hypertension Malignant neoplasm
--- NOTE | 2024-04-25 09:12 | W.PM.OBCSD ---
OB - Delivery Note Procedure Delivery date: 04/25/24 Surgeon: Arvin Miller MD Estimated Blood Loss: 705
[2024-04-25] MEDS: MORPHINE SULFATE INJ (*CRX) 10 MG/ML AMP 2 MG IV PUSH ×3 (09:50→10:50)
[2024-04-25] MEDS: OXYTOCIN 30 UNITS/NS 500 ML 30 UNITS/500 ML BAG 125 UNITS IV CONT (10:16)
[2024-04-25] MEDS: MORPHINE SULFATE PCA (*CRX) 30 MG/30 ML SYR IV CONT ×2 (10:47→22:15)
--- NOTE | 2024-04-25 11:22 | W.PM.OBCSD ---
OB - Delivery Note Procedure Delivery date: 04/25/24 Pre-op diagnosis: Gestational Diabetes and Previous Delivery Post-op Diagnosis: Same Procedure Performed: Repeat Secondary branch: low cervical, transverse and Tubal Ligation Surgeon: Arvin Miller MD Anesthesia type: General Description of Procedure/Findings: Patient prepped draped in usual manner for this procedure. Pfannenstiel incision was made after general anesthesia had been induced. This was carried down to the fascia which was then extended bilaterally the length of the skin incision. Superiorly and inferiorly done dissected away from the rectus muscles and the peritoneum was entered without difficulty. Bladder flap was developed uterus was scored low transverse manner. Vertex was delivered without difficulty nuchal cord was noted and reduced, patient was passed off the operative field. Placenta was removed manually, uterus was cleared of membranes and clots and the uterine incision was approximated 0 Monocryl in a running interlocking manner with good approximation noted. There were 2 small area of oozing which were rendered hemostatic with [id number] sutures of the 0 Monocryl. Attention was then placed the tubes with the tubes grasped and doubly ligated to remove the distal portion of the tube without difficulty. Uterus was turned the abdomen and when this was done there was oozing from the left side of the incision and 1 of the ties had noted to come loose. The uterus was then removed again and this was doubly tied again and hemostatic. Uterus was returned to the abdomen and both tubal segments, right and left, were noted to be intact and hemostatic. Fascia was then approximated using 0 Vicryl from the left angle midline and running manner and the right angle to midline with good approximation noted. Subcutaneous tissue was approximated using 0 plain and skin was then closed using monico. Patient was sent to recovery room in stable condition. Specimen: Yes ( Placenta and fallopian tubes) Estimated Blood Loss: 705 Drains: Yes ( Avelar catheter) Packing: No Pathology: Yes ( fallopian tubes) Complications: No immediate complications Condition: Stable Disposition: PACU Baby Weeks of gestation at delivery: 37 gender: Male Weight (pounds): 7 Weight (ounces): 4 presentation: vertex Placenta delivery description: Manual Removal Cord Vessel Description: 3 Vessels, Nuchal Cord and Reduced score one minute: 3 score five minutes: 4 score ten minutes: 5
--- NOTE | 2024-04-25 12:18 | PC.NURSE ---
Patient transferred to post room #277 per stretcher from labor and delivery. Support person present. Oriented to unit, room, information board, rooming in, admission packet and security measures. Patient verbalizes understanding.
[2024-04-25 13:16] LABS: Rapid Plasma Reagin Non-Reactive (NonReactive)
[2024-04-25] MEDS: DEXTROSE 5%/0.45% SOD CHL 1,000 ML 125 ML IV CONT (14:09)
[2024-04-25] MEDS: ACETAMINOPHEN 325 MG TABLET 650 MG PO ×2 (14:09→19:56)
[2024-04-25] MEDS: SIMETHICONE 80 MG TAB.CHEW PO ×2 (14:09→19:56)
[2024-04-25] MEDS: KETOROLAC 15 MG/ML VIAL (*BKC) IV PUSH ×2 (14:10→19:57)
[2024-04-25] MEDS: DOCUSATE SODIUM 100 MG CAPSULE PO (19:56)
[2024-04-25] MEDS: KCL 20 MEQ/D5/0.45% SOD CHL 1,000 ML 125 ML IV CONT (22:45)
--- NOTE | 2024-04-25 22:45 | PC.NURSE ---
2245- Lidocaine patch offered to patient and patient refused. Education given on efficacy of pain reduction and patient verbalized understanding and still refused at this time.
[2024-04-25] MEDS: diphenhydrAMINE HCl INJ 50 MG/ML VIAL 25 MG IV PUSH (22:59)
--- NOTE | 2024-04-26 | PC.NURSE ---
Patients hourly urine output 50 mL/hr at this time, concentrated dark urine. Educated patient at this time importance of oral intake to promote hydration and provided fresh water and apple juice upon patient request. Patient verbalized understanding.
[2024-04-26 00:43] VITALS: RESP 20; O2SAT 96
[2024-04-26] MEDS: KETOROLAC 15 MG/ML VIAL (*BKC) IV PUSH ×2 (01:56→08:05)
[2024-04-26] MEDS: ACETAMINOPHEN 325 MG TABLET 650 MG PO ×4 (01:57→22:46)
[2024-04-26 02:15] VITALS: RESP 18
[2024-04-26] MEDS: HYDROcodone/acetaminophen (*CRX) 10-325 MG TABLET 1 TAB PO ×5 (02:30→20:26)
[2024-04-26 03:50] LABS: Basophils Percent Auto 0.2 % (0.2-1.2); Eosinophils Percent Auto 0.2 % (0-4.4); Hematocrit 36.2 % (37.0-47.0); Hemoglobin 11.3 g/dL (12.0-15.0); Immature Granulocyte Absolute 0.07 K/mm3 (0.00-0.031); Immature Granulocyte Percent A 0.4 % (0-0.5); Lymphocytes Absolute Auto 2.51 K/mm3 (0.9-3.2); Lymphocytes Percent Auto 15.4 % (18.3-44.2); Mean Corpuscular HGB Conc 31.2 g/dl (32-36); Mean Corpuscular Hemoglobin 28.8 pg (26-34); Mean Corpuscular Volume 92.3 fl (80-100); Mean Platelet Volume 12.8 fl (7.4-10.4); Monocytes Absolute Auto 1.3 K/mm3 (0.1-0.6); Monocytes Percent Auto 7.9 % (2.6-8.5); Neutrophils Absolute Auto 12.4 K/mm3 (1.3-6.7); Neutrophils Percent Auto 75.9 % (45.5-73.1); Platelet Count Result 318 k/mm3 (150-375); Red Blood Count 3.92 M/mm3 (4.2-5.4); Red Cell Distribution Width 15.1 % (11.5-14.5); White Blood Count 16.4 K/mm3 (4.5-10.0)
[2024-04-26 04:30] VITALS: BP 136/76; PULSE 77; RESP 18; TEMP 36.6; O2SAT 95
[2024-04-26] MEDS: DEXTROSE 5%/0.45% SOD CHL 1,000 ML 200 ML IV CONT (05:30)
[2024-04-26 07:45] VITALS: BP 119/67; PULSE 66; RESP 16; TEMP 36.6; O2SAT 99
[2024-04-26] MEDS: MULTIVIT/MIN/PREN/FOL AC/IRON TABLET 1 TAB PO (08:04)
[2024-04-26] MEDS: DOCUSATE SODIUM 100 MG CAPSULE PO ×2 (08:04→16:50)
[2024-04-26] MEDS: SIMETHICONE 80 MG TAB.CHEW PO ×3 (08:05→16:49)
--- NOTE | 2024-04-26 09:30 | PC.NURSE ---
[id number] Introductions were made, then consulted with patient to assess needs related to and pumping. Mother is pumping without pain. Breast pump provided prior to meeting RN LC due to separation with her infant. Instructions given on cleaning, care, usage, that there should be no pain, pumping schedule for milk production, collection, and storage of human milk. Patient was assessed for correct placement, flange size, to pump for comfort and nipple stretching/stimulation for adequate milk production every 3 hours (8 times in 24 hours) 1-2 times at night (suggested 12-3-6-9...).?Mother voiced understanding of the education shared along with the pump measurement, flange fit handout for additional resource information. Encouraged mother to practice bonding with [id number] when able and to request assistance from the LC at [facility] Mother voiced understanding of information. RN LC name written on the communication board to use the call light for a pump assessment.
--- NOTE | 2024-04-26 10:55 | WPDANESPN ---
Anes - Prog Note Post-Op Date/Time: 04/26/24 10:55 Cardiovascular status: normal Respiratory status: normal Airway patency: baseline Mental status: baseline Post-Op hydration status: normal Vital Signs: Last Vital Signs Temp 36.6 C 04/26/24 07:45 Pulse 66 04/26/24 07:45 Resp 16 04/26/24 07:45 BP 119/67 04/26/24 07:45 Pulse Ox 99 04/26/24 07:45 O2 Del Method Room Air 04/25/24 19:00 Pain Score (VAS): 0 I/O: Intake & Output 04/25/24 04/26/24 04/26/24 23:59 07:59 15:59 Intake Total 1295.0 1269.0 840 Output Total 350 425 100 Balance 945.0 844.0 740 Laboratory Tests 04/26/24 03:08 04/25/24 06:18 04/25/24 04/26/24 06:18 03:08 WBC 16.4 H RBC 3.92 L Hgb 11.3 L Hct 36.2 L MCV 92.3 MCH 28.8 MCHC 31.2 L RDW 15.1 H Plt Count 318 MPV 12.8 H Immature Gran % (Auto) 0.4 Neut % (Auto) 75.9 H Lymph % (Auto) 15.4 L [place] % (Auto) 7.9 Eos % (Auto) 0.2 Baso % (Auto) 0.2 Lymph # (Auto) 2.51 [place] # (Auto) 1.3 H Eos # (Auto) 0.0 Baso # (Auto) 0.0 Abs Immat Gran (auto) 0.07 H Absolute Neuts (auto) 12.4 H Absolute Nucleated RBC 0.000 Nucleated RBC % 0.0 RPR Non-reactive Post-procedural complaints: none Patient Feedback: Patient satisfied with anesthetic care.
--- NOTE | 2024-04-26 12:30 | PC.NURSE ---
Patient left on a pass with her significant other to see the at [facility].
--- NOTE | 2024-04-26 14:24 | P.DS_ITS ---
DS: Admitting Diagnosis Discharge Date 04/27/2024 Admitting Diagnosis DS: Discharge Diagnosis Discharge Diagnosis (1) , delivered: Code(s): O80 - Encounter for full-term uncomplicated delivery Status: Acute OB - DS: Summary OB Procedures : None OB Procedures Intrapartum: and Tubal ligation OB Procedures: : None Peripartum Data Procedures: Procedures Operation Date: 04/25/24 07:30 Actual Procedure Side Surgeon p Repeat Section with Tubal Ligation Not Applicable Arvin Miller MD Time Spent with Patient Time attestation: Total time spent providing and/or coordinating discharge services: DS: Data Data Completed and Pending Pending studies at discharge: Pending at discharge 04/25/24 11:49 Surgical [PTH] Routine Labs on day of discharge: Labs from last 24 hours 04/26/24 03:08 WBC 16.4 H RBC 3.92 L Hgb 11.3 L Hct 36.2 L MCV 92.3 MCH 28.8 MCHC 31.2 L RDW 15.1 H Plt Count 318 MPV 12.8 H Immature Gran % (Auto) 0.4 Neut % (Auto) 75.9 H Lymph % (Auto) 15.4 L [place] % (Auto) 7.9 Eos % (Auto) 0.2 Baso % (Auto) 0.2 Lymph # (Auto) 2.51 [place] # (Auto) 1.3 H Eos # (Auto) 0.0 Baso # (Auto) 0.0 Abs Immat Gran (auto) 0.07 H Absolute Neuts (auto) 12.4 H Absolute Nucleated RBC 0.000 Nucleated RBC % 0.0 Discharge Plan Discharge Discharging Clinician: Arvin Miller Patient Disposition: Home, Self-Care Activity: no straining, no driving, follow weight bearing status and pelvic rest Diet: as tolerated Wound Care Instructions: other - see discharge instructions Discharge Instructions: return office 1 week for staple removal. Leave bandage in place until that time. Patient Instructions: Antibiotic Form Stand Alone Forms: General Discharge Information Follow-up/Referrals: Arvin Miller MD [Physician] - 3 Weeks Discharge Medications: New hydrocodone-acetaminophen 5-325 mg Tablet 1 tablet PO Q3H PRN (Reason: Breakthrough Pain Rated 4-6) Qty: 30 0RF ibuprofen 600 mg Tablet 600 mg PO Q6H Qty: 30 1RF Continued ondansetron HCl 4 mg tablet 4 mg PO Q6H PRN (Reason: nausea and vomiting) Qty: 30 2RF aspirin [Adult Low Dose Aspirin] 81 mg tablet,delayed release (DR/EC) 162 mg PO DAILY albuterol sulfate 90 mcg/actuation Hfa Aerosol Inhaler 1 puff INHALATION QID PRN (Reason: Shortness Of Breath Or Wheezing) hydroxyzine HCl 25 mg tablet 50 mg PO QID PRN (Reason: Itching) PNV cmb#95-ferrous fumarate-FA [] 28 mg iron- 800 mcg Tablet 1 tablet PO DAILY Discontinued insulin glargine [Lantus Solostar U-100 Insulin] 100 unit/mL (3 mL) insulin pen 8 unit subcut Q12H Date of admission: 04/25/24 05:32 Primary Care Provider: Albert,Sherri Noel Admitting Provider: Arvin Miller Attending physician on admission: Arvin Miller Condition: Stable
--- NOTE | 2024-04-26 14:29 | P.PNOB_ITS ---
OB - PN: Subj Subjective Date/time seen: 04/26/24 14:29 S: Diet well tolerated, ambulation without difficulty. Pain well controlled. Baby doing well other than being intubated. O: VSS afebrile Abdomen positive bowel sounds soft appropriately tender, bandage in place Labs: Noted A: POD/PPD 1... overall doing well. P: Continue routine postop/ care. If tolerates visit today, will likely discharge tomorrow. This is discussed with the patient and will see how this afternoon goes prior to scheduling discharge for tomorrow. Will need to see us in approximately 1 week for bandage removal as well as staple removal. OB - PN: Obj Data Labs 04/26/24 03:08 04/25/24 06:18 Labs: Laboratory Results - last 24 hr 04/26/24 03:08 WBC 16.4 H RBC 3.92 L Hgb 11.3 L Hct 36.2 L MCV 92.3 MCH 28.8 MCHC 31.2 L RDW 15.1 H Plt Count 318 MPV 12.8 H Immature Gran % (Auto) 0.4 Neut % (Auto) 75.9 H Lymph % (Auto) 15.4 L [place] % (Auto) 7.9 Eos % (Auto) 0.2 Baso % (Auto) 0.2 Lymph # (Auto) 2.51 [place] # (Auto) 1.3 H Eos # (Auto) 0.0 Baso # (Auto) 0.0 Abs Immat Gran (auto) 0.07 H Absolute Neuts (auto) 12.4 H Absolute Nucleated RBC 0.000 Nucleated RBC % 0.0 OB - PN A/P Time Spent With Patient Time: Total time spent is greater than 50% in coordination of care (as documented) at patient's floor/unit and/or counseling patient:
--- NOTE | 2024-04-26 16:35 | PC.NURSE ---
Pt returned from [facility] to [facility] per wheelchair. Pain medication given.
[2024-04-26] MEDS: IBUPROFEN 600 MG TABLET PO ×2 (16:50→22:46)
[2024-04-26 20:45] VITALS: BP 118/68; PULSE 81; RESP 18; TEMP 36.6; O2SAT 98
[2024-04-27] MEDS: HYDROcodone/acetaminophen (*CRX) 10-325 MG TABLET 1 TAB PO ×3 (00:24→10:35)
[2024-04-27 07:20] VITALS: BP 137/70; PULSE 95; RESP 16; TEMP 37.2; O2SAT 100
[2024-04-27] MEDS: MULTIVIT/MIN/PREN/FOL AC/IRON TABLET 1 TAB PO (07:39)
[2024-04-27] MEDS: IBUPROFEN 600 MG TABLET PO (07:39)
[2024-04-27] MEDS: SIMETHICONE 80 MG TAB.CHEW PO (07:39)
[2024-04-27] MEDS: DOCUSATE SODIUM 100 MG CAPSULE PO (07:39)
[2024-04-27] MEDS: TETANUS,DIPHTHERIA,AC PERTUSSIS ADULT (0.5 ML) BOOSTRIX IM (10:35)
--- NOTE | 2024-04-27 10:35 | PC.NURSE ---
Patient requested medical records for both her and her baby, phone call made to medical records and [facility] Release for Medical records given to the patient, completed by patient and faxed to medical records.
[2024-04-27] MEDS: MEASLES,MUMPS,RUBELLA VACCINE 0.5 ML VIAL SUB-Q (10:37)
== END 2024-04-27 10:50 | disposition home or self-care (01) | DRG 539 ==
LOC: ANHLDR 05:36 → ANHOB2 12:46
PROVIDERS: Admitting Provider Obstetrics & Gynecology; PCP Family Medicine Sports Medicine; Visit Provider Obstetrics & Gynecology
PROC: 10D00Z1 Extraction of Products of Conception, Low, Open Approach (ICD-10-PCS; CPT 59514; principal; 2024-04-25 07:30)
DX: O34.211 Maternal care for low transverse scar from previous cesarean delivery (principal); O14.94 Unspecified pre-eclampsia, complicating childbirth; Z37.0 Single live birth; Z3A.37 37 weeks gestation of pregnancy; O24.424 Gestational diabetes mellitus in childbirth, insulin controlled; O69.81X0 Labor and delivery complicated by cord around neck, without compression, not applicable or unspecified; Z30.2 Encounter for sterilization
CPT/HCPCS: 36415; 59025; 80053; 84112; 85025; 86592; 86703; 86850; 86900; 86901; 88302; 90710; 90715; A9270; G0432; J0330; J0690; J1100; J1200; J1885; J2270; J2274; J2405; J2590; J2704; J3010; J3480; J7120